=== PATIENT | male | born 1995 | race Caucasian/White ===

== ENCOUNTER 2017-06-30 10:10 | Emergency (ER) ==
[2017-06-30 10:18] VITALS: BP 172/107; TEMP 98.8; BMI 42.5
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
[2017-06-30] MEDS ORDERED: SILVADENE CREAM TP ONE (11:18)
[2017-06-30] MEDS ORDERED: MORPHINE 4 MG/ML VIAL IVP STA (11:36)
[2017-06-30] MEDS ORDERED: ZOFRAN ODT PO STA (11:36)
[2017-06-30] MEDS ORDERED: SILVADENE CREAM TP STA (11:37)
[2017-06-30] MEDS ORDERED: HIBICLENS 4% TP STA (11:37)
== END 2017-06-30 12:00 | disposition home or self-care (01) ==
LOC: ED 10:10
DX: T20.211A Burn of second degree of right ear [any part, except ear drum], initial encounter (principal); T20.06XA Burn of unspecified degree of forehead and cheek, initial encounter; X10.1XXA Contact with hot food, initial encounter
CPT/HCPCS: 99283